=== PATIENT | female | born 1950 | race Caucasian/White ===

== ENCOUNTER 2020-06-30 00:45 | Inpatient (IN) | payer MEDICARE ==
[~2020-06-30] VITALS: Ht 167.6 cm; Wt 66.4 kg
[2020-06-30] MEDS ORDERED: ATOR40TA28 PO (00:58)
[2020-06-30] MEDS ORDERED: AMLO-258 PO (00:58)
[2020-06-30] MEDS ORDERED: METF-911 PO (00:58)
[2020-06-30] MEDS ORDERED: LOSA50TA37 PO (00:58)
[2020-06-30 02:21] LABS: BASOPHILS % (AUTO) 0.2 % (0.0-2.0); EOSINOPHILS % (AUTO) 1.6 % (1.0-6.0); HEMATOCRIT 38.6 % (36-46); HEMOGLOBIN 13.3 g/dL (12.0-16.0); LYMPHOCYTES # (AUTO) 2.2 K/uL (1.0-4.8); MEAN CORPUSCULAR HEMOGLOBIN 31.5 pg (26.0-34.0); MEAN CORPUSCULAR HGB CONC 34.5 G/dL (31.0-37.0); MEAN CORPUSCULAR VOLUME 91 fL (80-100); MONOCYTES # (AUTO) 0.8 K/uL (0.1-1.0); MONOCYTES % (AUTO) 8.6 % (2.0-9.0); NEUTROPHILS # (AUTO) 6.5 K/uL (1.8-7.7); NEUTROPHILS % (AUTO) 66.6 % (40.0-70.0); PLATELET COUNT (AUTO) 300 K/uL (150-450); RED BLOOD CELL COUNT(AUTO) 4.22 MIL/uL (4.00-5.20); RED CELL DISTRIBUTION WIDTH 12.8 % (11.5-14.5)
[2020-06-30 02:38] LABS: ALBUMIN 4.1 g/dL (3.4-5.0); BILIRUBIN,TOTAL 1.2 mg/dL (0.1-1.0); CALCIUM, TOTAL 9.7 mg/dL (8.8-10.5); CREATININE 1.53 mg/dL (0.60-1.30); POTASSIUM 3.1 mmol/L (3.5-5.1); TOTAL PROTEIN, SERUM 8.4 g/dL (6.4-8.2)
[2020-06-30] MEDS ORDERED: POTASSIUM CHLORIDE 20 MEQ ER TABLET PO ONE (02:45)
[2020-06-30] MEDS ORDERED: SODIUM CHLORIDE 0.9% 1,000 ML IV ONE (02:45)
[2020-06-30] MEDS ORDERED: ONDANSETRON HCL 4 MG/2 ML VIAL IVP ONE (03:00)
[2020-06-30 03:09] LABS: APPEARANCE,URINE CLEAR (CLEAR); BILIRUBIN,URINE NEGATIVE (NEGATIVE); GLUCOSE, URINE (UA) NEGATIVE (NEGATIVE); KETONES,URINE TRACE mg/dL (NEGATIVE); LEUKOCYTE ESTERASE ,URINE TRACE (NEGATIVE); NITRATE,URINE NEGATIVE (NEGATIVE); OCCULT BLOOD,URINE NEGATIVE (NEGATIVE); PH,URINE 7.5 (5.0-8.0); PROTEIN,URINE NEGATIVE (NEGATIVE)
[2020-06-30 03:16] LABS: BACTERIA,URINE None Seen /HPF (None Seen); RBC,URINE 0-2 /HPF (0-2); WBC,URINE 0-2 /HPF (0-5)
[2020-06-30] MEDS ORDERED: CEPHALEXIN MONOHYDRATE 500 MG CAPSULE PO ONE (03:30)
[2020-06-30] MEDS ORDERED: ASPIRIN 81 MG CHEWABLE TABLET PO ONE (03:30)
[2020-06-30] MEDS ORDERED: ACETAMINOPHEN 325 MG TABLET PO PRN (03:45)
[2020-06-30] MEDS ORDERED: ONDANSETRON HCL 4 MG/2 ML VIAL IVP PRN (03:45)
[2020-06-30 04:16] LABS: COVID AG,FIA SOURCE NASOPHARYNGEAL
[2020-06-30 05:32] VITALS: BP 151/74
[2020-06-30 05:46] LABS: INFLUENZA TYPE A NEGATIVE FOR TYPE A (NEGATIVE); INFLUENZA TYPE B NEGATIVE FOR TYPE B (NEGATIVE)
[2020-06-30 07:24] VITALS: BP 126/65
[2020-06-30] MEDS: HEPARIN SODIUM,PORCINE 5,000 UNITS/ML VIAL SQ SCH ×2 (07:55→15:54)
[2020-06-30] MEDS ORDERED: DEXTROSE 50%-WATER 25 GM/50 ML SYRINGE IVP PRN (08:00)
[2020-06-30] MEDS ORDERED: INSULIN LISPRO 100 UNITS/ML SQ PRN (08:00)
[2020-06-30] MEDS: SODIUM CHLORIDE 0.9% 1,000 ML IV SCH (08:08)
[2020-06-30] MEDS: MetFORMIN HCL 500 MG ER TABLET PO SCH (09:05)
[2020-06-30] MEDS: AmLODIPine BESYLATE 10 MG TABLET PO SCH (09:05)
[2020-06-30] MEDS: ATORVASTATIN CALCIUM 40 MG TABLET PO SCH (09:05)
[2020-06-30 10:00] LABS: CALCIUM, TOTAL 9.2 mg/dL (8.8-10.5); CREATININE 1.53 mg/dL (0.60-1.30); POTASSIUM 4.1 mmol/L (3.5-5.1); THYROID STIMULATING HORMONE 0.93 uIU/mL (0.36-3.74)
[2020-06-30 11:00] VITALS: BP 121/70
[2020-06-30] MEDS: SODIUM CHLORIDE 1 GM TABLET PO SCH ×2 (15:53→20:43)
[2020-06-30 15:55] VITALS: BP 137/71
[2020-06-30 19:48] VITALS: BP 122/58
[2020-06-30 23:46] VITALS: BP 115/57
[2020-07-01] MEDS: HEPARIN SODIUM,PORCINE 5,000 UNITS/ML VIAL SQ SCH ×3 (00:35→16:03)
[2020-07-01] MEDS: SODIUM CHLORIDE 0.9% 1,000 ML IV SCH (00:35)
[2020-07-01 04:39] VITALS: BP 127/64
[2020-07-01 06:36] LABS: BASOPHILS % (AUTO) 0.4 % (0.0-2.0); EOSINOPHILS % (AUTO) 1.4 % (1.0-6.0); HEMATOCRIT 35.3 % (36-46); HEMOGLOBIN 12.1 g/dL (12.0-16.0); LYMPHOCYTES % (AUTO) 26.9 % (22.0-44.0); MEAN CORPUSCULAR HEMOGLOBIN 31.4 pg (26.0-34.0); MEAN CORPUSCULAR HGB CONC 34.4 G/dL (31.0-37.0); MEAN CORPUSCULAR VOLUME 91 fL (80-100); MONOCYTES # (AUTO) 1.2 K/uL (0.1-1.0); MONOCYTES % (AUTO) 15.6 % (2.0-9.0); NEUTROPHILS # (AUTO) 4.2 K/uL (1.8-7.7); NEUTROPHILS % (AUTO) 55.7 % (40.0-70.0); PLATELET COUNT (AUTO) 271 K/uL (150-450); RED BLOOD CELL COUNT(AUTO) 3.86 MIL/uL (4.00-5.20); RED CELL DISTRIBUTION WIDTH 12.8 % (11.5-14.5)
[2020-07-01 06:46] LABS: CREATININE 1.58 mg/dL (0.60-1.30); POTASSIUM 3.6 mmol/L (3.5-5.1)
[2020-07-01 08:00] VITALS: BP 120/56
[2020-07-01] MEDS: MetFORMIN HCL 500 MG ER TABLET PO SCH (08:31)
[2020-07-01] MEDS: ATORVASTATIN CALCIUM 40 MG TABLET PO SCH (08:31)
[2020-07-01] MEDS: AmLODIPine BESYLATE 10 MG TABLET PO SCH (08:31)
[2020-07-01] MEDS: SODIUM CHLORIDE 1 GM TABLET PO SCH ×2 (08:31→16:03)
[2020-07-01 12:18] VITALS: BP 131/52
[2020-07-01 16:05] VITALS: BP 136/62
[2020-07-02 07:56] LABS: GLUCOMETER DEV NAME(LOC) 5N.1B; GLUCOSE,POINT OF CARE 119 MG/DL (70-110)
[2020-07-02 07:56] LABS: GLUCOMETER DEV NAME(LOC) 5N.1B; GLUCOSE,POINT OF CARE 112 MG/DL (70-110)
[2020-07-02 07:56] LABS: GLUCOMETER DEV NAME(LOC) 5N.1B; GLUCOSE,POINT OF CARE 110 MG/DL (70-110)
[2020-07-02 07:56] LABS: GLUCOMETER DEV NAME(LOC) 5N.1B; GLUCOSE,POINT OF CARE 134 MG/DL (70-110)
[2020-07-02 07:57] LABS: GLUCOMETER DEV NAME(LOC) 5N.1B; GLUCOSE,POINT OF CARE 92 MG/DL (70-110)
[2020-07-02 07:57] LABS: GLUCOMETER DEV NAME(LOC) 5N.1B; GLUCOSE,POINT OF CARE 157 MG/DL (70-110)
== END 2020-07-01 19:15 | disposition home or self-care (01) | DRG 683 ==
LOC: EMS 00:48 → 5N 04:00
PROVIDERS: ADMIT Internal Medicine; ATTEND Internal Medicine
DX: N17.9 Acute kidney failure, unspecified (principal); E87.1 Hypo-osmolality and hyponatremia; E87.6 Hypokalemia; E78.5 Hyperlipidemia, unspecified; Z20.822 Contact with and (suspected) exposure to COVID-19; E11.22 Type 2 diabetes mellitus with diabetic chronic kidney disease; E87.8 Other disorders of electrolyte and fluid balance, not elsewhere classified; I12.9 Hypertensive chronic kidney disease with stage 1 through stage 4 chronic kidney disease, or unspecified chronic kidney disease; N18.9 Chronic kidney disease, unspecified; Z79.84 Long term (current) use of oral hypoglycemic drugs; Z79.899 Other long term (current) drug therapy; R33.9 Retention of urine, unspecified
CPT/HCPCS: 76770; 82533; 82948; 83930; 83935; 84300; 84443; 87426; 87804; 93005; 93306; 99285; J1644; J2405; J7030

== ENCOUNTER → 2020-07-11 | Outpatient (CLI) | payer MEDICARE ==
[~2020-07-11] MED LIST: AMLO-258 PO; ATOR40TA28 PO; CLON0.1T2 PO; LISI-893 PO; LOSA50TA37 PO; METF-911 PO
== END | disposition home or self-care (01) ==
LOC: RADPV 10:29
PROVIDERS: ATTEND Internal Medicine Nephrology
DX: N18.30 Chronic kidney disease, stage 3 unspecified (principal)
CPT/HCPCS: 76770